=== PATIENT | female | born 1965 | race Caucasian/White ===

== ENCOUNTER 2017-01-02 10:13 | Inpatient (IN) | payer OTHER ==
[2017-01-02 13:05] VITALS: BMI 20.8
--- NOTE | 2017-01-02 16:32 | HP ---
COWS - Scale Resting Pulse: 0= NM 80 or Below Sweatin=Flushed/Facial Moisture Restless Observation: 1= Difficult to Sit Still Pupil Size: 0= Normal to Room Light Bone or Joint Aches: 2= Severe Diffuse Aches Runny Nose/ Eye Tearin= Runny Nose/Eyes GI Upset > 30mins: 2= Nausea/Diarrhea Tremor Observation: 2= Slight Tremor Visible Yawning Observation: 2= >3x During Session Anxiety or Irritability: 2=Irritable/Anxious Goose Flesh Skin: 3=Piloerection COWS Score: 18 Admission ROS S - HPI Chief Complaint: I need to live again, i lost loved one because of drugs and i need to stop. Allergies/Adverse Reactions: Allergies Allergy/AdvReac Type Severity Reaction Status Date / Time No Known Allergies Allergy Verified 01/02/17 14:54 History of Present Illness: pt is a 51yr old female with a history of heroin dependence seeking detox for treatment. Exam Limitations: No Limitations - Ebola screening Have you traveled outside of the country in the last 21 days: No Have you had contact with anyone from an Ebola affected area: No Have you been sick,other than usual withdrawal symptoms: No - Review of Systems Constitutional: Chills, Diaphoresis, Loss of Appetite, Changes in sleep EENT: reports: Tearing, Nose Congestion Respiratory: reports: No Symptoms reported Cardiac: reports: No Symptoms Reported, Syncope GI: reports: Diarrhea, Nausea, Poor Appetite, Poor Fluid Intake, Indigestion : reports: No Symptoms Reported Musculoskeletal: reports: No Symptoms Reported Integumentary: reports: Flushing, Sweating Neuro: reports: Headache, Tingling, Tremors Endocrine: reports: Excessive Sweating, Flushing, Intolerance to Cold, Intolerance to Heat Hematology: reports: No Symptoms Reported Psychiatric: reports: Judgement Intact, Mood/Affect Appropiate, Orientated x3, Agitated, Anxious Other Systems: Reviewed and Negative Patient History - Patient Medical History Hx Anemia: No Hx Asthma: No Hx Chronic Obstructive Pulmonary Disease (COPD): No Hx Cancer: Yes (CERVICAL S/P [facility]-SURGERY) Hx Cardiac Disorders: No Hx Congestive Heart Failure: No Hx Hypertension: No Hx Hypercholesterolemia: No Hx Pacemaker: No HX Cerebrovascular Accident: No Hx Seizures: No Hx Dementia: No Hx Diabetes: No Hx Gastrointestinal Disorders: No Hx Liver Disease: No Hx Genitourinary Disorders: No Hx Sexually Transmitted Disorders: No Hx Renal Disease (ESRD): No Hx Thyroid Disease: No Hx Human Immunodeficiency Virus (HIV): No (negative) Hx Hepatitis C: No (negative) Hx Depression: Yes Hx Suicide Attempt: Yes (denies any S/H ideation ) Hx Bipolar Disorder: No Hx Schizophrenia: No Other Medical History: denies - Patient Surgical History Past Surgical History: Yes Hx Neurologic Surgery: No Hx Cataract Extraction: No Hx Cardiac Surgery: No Hx Lung Surgery: No Hx Breast Surgery: No Hx Breast Biopsy: No Hx Abdominal Surgery: No Hx Appendectomy: No Hx Cholecystectomy: No Hx Genitourinary Surgery: No Hx Section: No Hx Orthopedic Surgery: No Other Surgical History: LAPAROSCOPIC FOR OVARIAN CYST Anesthesia Reaction: No - PPD History Previous Implant?: Yes Implanted On Prior [facility] Admission?: Yes Date: 07/11/16 PPD to be Administered?: No - Reproductive History Patient is a Female of Child Bearing Age (11 -55 yrs old): No Patient : No - Smoking Cessation Smoking history: Current every day smoker Have you smoked in the past 12 months: Yes Aproximately how many cigarettes per day: 20 Hx Chewing Tobacco Use: No Initiated information on smoking cessation: Yes 'Breaking Loose' booklet given: 01/02/17 - Substance & Tx. History Hx Substance Use: Yes Substance Use Type: Cocaine, Heroin, Marijuana Hx Substance Use Treatment: Yes - Substances Abused Heroin Route: Injection Frequency: Daily Amount used: 10 bags Age of first use: 29 Date of Last Use: 01/02/17 Cocaine Route: Smoking Frequency: Daily Amount used: $50 Age of first use: 29 Date of Last Use: 01/01/17 Marijuana/Hashish Route: Smoking Frequency: Daily Amount used: omid bag Age of first use: 10 Date of Last Use: 01/01/17 Family Disease History - Family Disease History Family Disease History: Heart Disease: Father (ALCOHOL), Other: Father, Brother (ALCOHOL & COCAINE), Sister (ALCOHOL & COCAINE) Admission Physical Exam BHS - Vital Signs Vital Signs: Vital Signs - 24 hr 01/02/17 13:02 Temperature 96.4 F L Pulse Rate 64 Respiratory 20 Rate Blood Pressure 118/58 - Physical General Appearance: Yes: Appropriately Dressed, Moderate Distress, Tremorous, Irritable, Sweating, Anxious HEENTM: Yes: Normal Voice, Nasal Congestion Respiratory: Yes: Lungs Clear, Normal Breath Sounds, No Respiratory Distress Neck: Yes: No masses,lesions,Nodules Breast: Yes: Within Normal Limits Cardiology: Yes: Regular Rhythm, Regular Rate, S1, S2 Abdominal: Yes: Normal Bowel Sounds, Non Tender, Soft Genitourinary: Yes: Within Normal Limits Back: Yes: Normal Inspection Musculoskeletal: Yes: full range of Motion, Back pain Extremities: Yes: Normal Capillary Refill, Normal Inspection, Tremors Neurological: Yes: Fully Oriented, Alert, Normal Response Integumentary: Yes: Normal Color, Diaphoresis Lymphatic: Yes: Within Normal Limits - Diagnostic (1) Cocaine dependence, uncomplicated Current Visit: Yes Status: Chronic (2) Opioid dependence with withdrawal Current Visit: Yes Status: Chronic (3) Nicotine dependence Current Visit: Yes Status: Chronic Qualifiers: Nicotine product type: cigarettes Substance use status: uncomplicated Qualified Code(s): F17.210 - Nicotine dependence, cigarettes, uncomplicated Cleared for Admission [facility] - Detox or Rehab [facility] Level of Care: Medically Managed Detox Regimen/Protocol: Methadone [facility] Breath Alcohol Content Breath Alcohol Content: 0 Urine Pregancy Test - Result Urine Test Results: Negative- NO Line Present Urine Drug Screen - Results Drug Screen Negative: No Urine Drug Screen Results: THC-Marijuana, PADMINI-Cocaine, OPI-Opiates, BZO- Benzodiazepines
[2017-01-02] MEDS ORDERED: hydrOXYzine PAMOATE 50 MG CAPSULE (FP) PO PRN (16:39)
[2017-01-02] MEDS ORDERED: P-EPHED 60MG/TRIPROLIDI 2.5MG TABLET PO PRN (16:39)
[2017-01-02] MEDS ORDERED: IBUPROFEN 400 MG TABLET (FP) PO PRN (16:39)
[2017-01-02] MEDS ORDERED: MENTHOL/PHENOL 1 EACH UD MM PRN (16:39)
[2017-01-02] MEDS ORDERED: diphenhydrAMINE HCL 50 MG CAPSULE PO PRN (16:39)
[2017-01-02] MEDS ORDERED: MAGNESIUM HYDROX 2400MG/30ML ORAL SUSPENSION 30 ML CUP PO PRN (16:39)
[2017-01-02] MEDS ORDERED: ACETAMINOPHEN 325 MG TABLET (FP) PO PRN (16:39)
[2017-01-02] MEDS ORDERED: MAGNESIUM CITRATE 300 ML BOTTLE PO PRN (16:39)
[2017-01-02] MEDS ORDERED: LOPERAMIDE HCL 2 MG CAPSULE PO PRN (16:39)
[2017-01-02] MEDS ORDERED: guaiFENesin/D-METHORPHAN HB 10 ML UNIT-DOSE CUPS PO PRN (16:39)
[2017-01-02] MEDS ORDERED: MAG HYDROX/AL HYDROX/SIMETH 30 ML UNIT-DOSE CUP PO PRN (16:39)
[2017-01-02] MEDS ORDERED: METHADONE HCL 10 MG TABLET (FOR DETOX USE ONLY) PO ONE ×2 (17:00→23:00)
[2017-01-02] MEDS: diazePAM 5 MG TABLET PO PRN ×2 (18:18→22:41)
[2017-01-02] MEDS: THIAMINE HCL 100 MG TABLET (FP) PO SCH (22:40)
[2017-01-02 23:54] LABS: URINE APPEARANCE SLCLOUDY; URINE BILIRUBIN NEGATIVE (NEGATIVE); URINE COLOR YELLOW; URINE GLUCOSE (UA) NEGATIVE (NEGATIVE); URINE KETONE NEGATIVE (NEGATIVE); URINE NITRITE POSITIVE (NEGATIVE); URINE PROTEIN NEGATIVE (NEGATIVE); URINE UROBILINOGEN NEGATIVE E.U./dl (0.2-1.0)
[2017-01-03 00:11] LABS: URINE BLOOD 1+ (NEGATIVE); URINE LEUK ESTERASE TRACE (NEGATIVE)
[2017-01-03 00:30] LABS: CALCIUM OXALATE CRYSTALS RARE /hpf (NONE SEEN); URINE BACTERIA RARE /hpf (NONE SEEN); URINE MUCUS RARE; URINE RBC 1 /hpf (0-3); URINE WBC 5 /hpf (3-5)
[2017-01-03] MEDS: diazePAM 5 MG TABLET PO PRN ×4 (05:32→22:35)
[2017-01-03] MEDS ORDERED: NICOTINE 21 MG/24 HOURS TOPICAL PATCH TD SCH (10:00)
[2017-01-03] MEDS ORDERED: PRENATAL VITAMINS W/ FOLIC ACID TABLET (FP) PO SCH (10:00)
[2017-01-03] MEDS ORDERED: METHADONE HCL 10 MG TABLET (FOR DETOX USE ONLY) PO ONE (10:00)
[2017-01-03 10:16] LABS: MCH 29.4 pg (25.7-33.7); MEAN CELL VOLUME 89.2 fl (80-96); MEAN PLT VOLUME 9.8 fl (7.5-11.1); PLATELET COUNT 227 K/MM3 (134-434); RDW 14.1 % (11.6-15.6); WHITE BLOOD COUNT 7.8 K/mm3 (4.0-10.0)
[2017-01-03 10:35] LABS: ALBUMIN 3.9 g/dl (3.4-5.0); ALK PHOS 85 U/L (45-117); ANION GAP 8 (8-16); BILIRUBIN,TOTAL 0.6 mg/dL (0.2-1.0); CALCIUM 9.5 mg/dL (8.5-10.1); CO2 28 mmol/L (21-32); CREATININE 0.9 mg/dL (0.55-1.02); GLUCOSE,RANDOM 162 mg/dL (74-106); SGOT/AST 29 U/L (15-37); SGPT/ALT 24 U/L (12-78); TOT PROT 7.8 g/dl (6.4-8.2)
--- NOTE | 2017-01-03 11:13 | CONSULT ---
[facility] Psychiatric Consult - Data Date of interview: 01/03/17 Admission source: [facility] Identifying data: Readmission to [facility] for this 51 y/o [place] female seeking detox treatment for heroin,cocaine and marijuana dependence.Patient is ,a mother of one,domiciled,unemployed and supported by her reamer hand. Substance Abuse History: - Smoking Cessation. Smoking history: Current every day smoker. Have you smoked in the past 12 months: Yes. Aproximately how many cigarettes per day: 20. Hx Chewing Tobacco Use: No. Initiated information on smoking cessation: Yes. 'Breaking Loose' booklet given: 01/02/17. - Substance & Tx. History. Hx Substance Use: Yes. Substance Use Type: Cocaine, Heroin, Marijuana. Hx Substance Use Treatment: Yes. - Substances Abused. Heroin. Route: Injection. Frequency: Daily. Amount used: 10 bags. Age of first use: 29. Date of Last Use: 01/02/17. Cocaine. Route: Smoking. Frequency: Daily. Amount used: $50. Age of first use: 29. Date of Last Use: 01/01/17. * * Marijuana/Hashish. Route: Smoking. Frequency: Daily. Amount used: omid bag. Age of first use: 10. Date of Last Use: 01/01/17. Confirmed by patient. Medical History: History of conization for cervical cancer and laparoscopic surgery for ovarian cyst. Psychiatric History: Patient admits to a history of one psychiatric hospitalization ([facility]) about 20 years ago for depression/suicide attempt via overdose with drugs.Diagnosed with MDD/Anxiety Disorder.Used to be on various pychotropic medications.Stopped psychiatric OPD care years ago.No medications. Physical/Sexual Abuse/Trauma History: Patient declines to discuss this domain. Additional Comment: Urine Drug Screen Results: THC-Marijuana, PADMINI-Cocaine, OPI- Opiates, BZO-Benzodiazepines.Noted. Mental Status Exam - Mental Status Exam Alert and Oriented to: Time, Place, Person Cognitive Function: Good Patient Appearance: Well Groomed Mood: Hopeful, Euthymic Affect: Appropriate, Normal Range Patient Behavior: Fatigued, Appropriate, Cooperative Speech Pattern: Clear Voice Loudness: Normal Thought Process: Goal Oriented Thought Disorder: Not Present Hallucinations: Denies Suicidal Ideation: Denies Homicidal Ideation: Denies Insight/Judgement: Poor Sleep: Poorly, Difficulty falling asleep (wants ambien) Appetite: Good Muscle strength/Tone: Normal Gait/Station: Normal Psychiatric Findings - Problem List ([place] 1, 2,3) (1) Cocaine dependence, uncomplicated Current Visit: Yes Status: Acute (2) Opioid dependence with withdrawal Current Visit: Yes Status: Acute (3) Nicotine dependence Current Visit: Yes Status: Acute Qualifiers: Nicotine product type: cigarettes Substance use status: uncomplicated Qualified Code(s): F17.210 - Nicotine dependence, cigarettes, uncomplicated (4) Substance induced mood disorder Current Visit: Yes Status: Acute (5) Insomnia Current Visit: Yes Status: Acute - Initial Treatment Plan Initial Treatment Plan: Psychoeducation.Detoxification.Ambien 5 mg po hs.Patient is made aware of potential for parasomnias.She agrees with careplan.Observation.
[2017-01-03] MEDS ORDERED: ZOLPIDEM TARTRATE 5 MG TABLET PO PRN (11:28)
--- NOTE | 2017-01-03 12:21 | EKG ---
Test Reason : Blood Pressure : / mmHG Vent. Rate : 061 BPM Atrial Rate : 061 BPM P-R Int : 140 ms QRS Dur : 082 ms QT Int : 436 ms P-R-T Axes : 053 072 061 degrees QTc Int : 438 ms NORMAL SINUS RHYTHM NORMAL ECG NO PREVIOUS ECGS AVAILABLE Confirmed by MD KRISTAL, BRENNAN ([id number]) on 01/03/2017 12:20:36 PM Referred By: Confirmed By:BRENNAN GIRALDO MD
--- NOTE | 2017-01-03 14:56 | PN ---
BHS COWS - Scale Resting Pulse: 0= [place] 80 or Below Sweatin= Chills/Flushing Restless Observation: 3= Extraneous Movement Pupil Size: 1= Pupils >than Normal Bone or Joint Aches: 2= Severe Diffuse Aches Runny Nose/ Eye Tearin= Runny Nose/Eyes GI Upset > 30mins: 3= Vomiting/Diarrhea Tremor Observation of Outstretched Hands: 2= Slight Tremor Visible Yawning Observation: 1= 1-2x During Session Anxiety or Irritability: 2=Irritable/Anxious Goose Flesh Skin: 0=Smooth Skin COWS Score: 17 S Progress Note (SOAP) Subjective: ALERT,IRRITABLE,ANXIOUS,INTERRUPTED SLEEP,PAIN IN THE BODY AND BACK Objective: 01/03/17 14:54 Vital Signs Temperature 97.9 F 01/03/17 10:00 Pulse Rate 66 01/03/17 10:00 Respiratory Rate 16 01/03/17 10:00 Blood Pressure 142/62 01/03/17 10:00 O2 Sat by Pulse Oximetry (%) 01/03/17 14:54 EKG NSR,NORMAL ECG 01/03/17 14:55 Laboratory Last Values WBC 7.8 K/mm3 (4.0-10.0) 01/03/17 06:00 RBC 4.99 M/mm3 (3.60-5.2) 01/03/17 06:00 Hgb 14.7 GM/dL (10.7-15.3) 01/03/17 06:00 Hct 44.5 % (32.4-45.2) 01/03/17 06:00 MCV 89.2 fl (80-96) 01/03/17 06:00 MCHC 33.0 g/dl (32.0-36.0) 01/03/17 06:00 RDW 14.1 % (11.6-15.6) 01/03/17 06:00 Plt Count 227 K/MM3 (134-434) 01/03/17 06:00 MPV 9.8 fl (7.5-11.1) D 01/03/17 06:00 Sodium 139 mmol/L (136-145) 01/03/17 06:00 Potassium 4.0 mmol/L (3.5-5.1) 01/03/17 06:00 Chloride 103 mmol/L (98-107) 01/03/17 06:00 Carbon Dioxide 28 mmol/L (21-32) 01/03/17 06:00 Anion Gap 8 (8-16) 01/03/17 06:00 BUN 9 mg/dL (7-18) D 01/03/17 06:00 Creatinine 0.9 mg/dL (0.55-1.02) D 01/03/17 06:00 Creat Clearance w eGFR > 60 (>60) 01/03/17 06:00 Random Glucose 162 mg/dL (74-106) H D 01/03/17 06:00 Calcium 9.5 mg/dL (8.5-10.1) 01/03/17 06:00 Total Bilirubin 0.6 mg/dL (0.2-1.0) 01/03/17 06:00 AST 29 U/L (15-37) 01/03/17 06:00 ALT 24 U/L (12-78) 01/03/17 06:00 Alkaline Phosphatase 85 U/L (45-117) 01/03/17 06:00 Total Protein 7.8 g/dl (6.4-8.2) 01/03/17 06:00 Albumin 3.9 g/dl (3.4-5.0) 01/03/17 06:00 Urine Color Yellow 01/02/17 23:40 Urine Appearance Slcloudy 01/02/17 23:40 Urine pH 5.0 (5.0-8.0) 01/02/17 23:40 Ur Specific [place] 1.020 (1.005-1.025) 01/02/17 23:40 Urine Protein Negative (NEGATIVE) 01/02/17 23:40 Urine Glucose (UA) Negative (NEGATIVE) 01/02/17 23:40 Urine Ketones Negative (NEGATIVE) 01/02/17 23:40 Urine Blood 1+ (NEGATIVE) H 01/02/17 23:40 Urine Nitrite Positive (NEGATIVE) 01/02/17 23:40 Urine Bilirubin Negative (NEGATIVE) 01/02/17 23:40 Urine Urobilinogen Negative E.U./dl (0.2-1.0) 01/02/17 23:40 Ur Leukocyte Esterase Trace (NEGATIVE) H D 01/02/17 23:40 Urine RBC 1 /hpf (0-3) 01/02/17 23:40 Urine WBC 5 /hpf (3-5) 01/02/17 23:40 Ur Epithelial Cells Moderate /hpf (FEW) 01/02/17 23:40 Calcium Oxalate Crystal Rare /hpf (NONE SEEN) 01/02/17 23:40 Urine Bacteria Rare /hpf (NONE SEEN) 01/02/17 23:40 Urine Mucus Rare 01/02/17 23:40 RPR Titer Nonreactive (NONREACTIVE) 01/03/17 06:00 Assessment: 01/03/17 14:55 WITHDRAWAL SYMPTOM Plan: CONTINUE DETOX,BGM MONITORING
[2017-01-03] MEDS: THIAMINE HCL 100 MG TABLET (FP) PO SCH (22:35)
[2017-01-04] MEDS: diazePAM 5 MG TABLET PO PRN ×2 (02:47→07:22)
--- NOTE | 2017-01-04 09:49 | PN ---
BHS COWS - Scale Resting Pulse: 0= [place] 80 or Below Sweatin= Chills/Flushing Restless Observation: 3= Extraneous Movement Pupil Size: 1= Pupils >than Normal Bone or Joint Aches: 2= Severe Diffuse Aches Runny Nose/ Eye Tearin= Runny Nose/Eyes GI Upset > 30mins: 2= Nausea/Diarrhea Tremor Observation of Outstretched Hands: 2= Slight Tremor Visible Yawning Observation: 1= 1-2x During Session Anxiety or Irritability: 2=Irritable/Anxious Goose Flesh Skin: 0=Smooth Skin COWS Score: 16 BHS Progress Note (SOAP) Subjective: ALERT,IRRITABLE,ANXIOUS,INTERRUPTED SLEEP,TREMOR,PAIN IN THE BODY AND BACK Objective: 01/04/17 09:48 Vital Signs Temperature 97.9 F 01/04/17 06:00 Pulse Rate 62 01/04/17 06:00 Respiratory Rate 18 01/04/17 06:00 Blood Pressure 139/87 01/04/17 06:00 O2 Sat by Pulse Oximetry (%) 01/04/17 09:49 BGM 107 Assessment: 01/04/17 09:49 WITHDRAWAL SYMPTOM Plan: CONTINUE DETOX
--- NOTE | 2017-01-04 09:53 | PN ---
S Progress Note Note: ADDENDUM PATIENT DID NOT WANT TO COMPLETE TREATMENT,SIGNED RELEASE AMA,SEEN BY COUNSELOR, FOLLOW UP WITH AFTER CARE PROGRAM ARRANGEMENT
[2017-01-04 09:55] VITALS: BP 162/78; PULSE 78; TEMP 98.1
--- NOTE | 2017-01-04 09:55 | DS ---
[facility] Detox Discharge Summary Admission Date: 01/02/17 Discharge Date: 01/04/17 - History Present History: Cocaine Dependence, Opioid Dependence Additional Comments: PATIENT DID NOT WANT TO COMPLETE TREATMENT,SIGNED RELEASE AMA,SEEN BY COUNSELOR, FOLLOW UP WITH AFTER CARE PROGRAM ARRANGEMENT Pertinent Past History: NICOTINE DEPENDENCE - Physical Exam Results Vital Signs: Vital Signs Temperature 97.9 F 01/04/17 06:00 Pulse Rate 62 01/04/17 06:00 Respiratory Rate 18 01/04/17 06:00 Blood Pressure 139/87 01/04/17 06:00 O2 Sat by Pulse Oximetry (%) Pertinent Admission Physical Exam Findings: WITHDRAWAL SYMPTOM - Medication Discharge Medications: Ambulatory Orders NK [No Known Home Medication] 07/09/16 - AMA Did Patient Leave Against Medical Advice: Yes
[2017-01-04] MEDS ORDERED: METHADONE HCL 5 MG TABLET (FOR DETOX USE ONLY) PO ONE (10:00)
[2017-01-05] MEDS ORDERED: METHADONE HCL 5 MG TABLET (FOR DETOX USE ONLY) PO ONE (10:00)
[2017-01-06] MEDS ORDERED: METHADONE HCL 10 MG TABLET (FOR DETOX USE ONLY) PO ONE (10:00)
[2017-01-07] MEDS ORDERED: METHADONE HCL 5 MG TABLET (FOR DETOX USE ONLY) PO ONE (06:00)
== END 2017-01-04 10:05 | disposition left against medical advice (07) | DRG 770 ==
LOC: YASAS 10:13 → Y6N 16:32
PROVIDERS: ADMIT Internal Medicine; ATTEND Internal Medicine
PROC: HZ2ZZZZ Detoxification Services for Substance Abuse Treatment (ICD-10-PCS; principal; 2017-01-02)
DX: F11.23 Opioid dependence with withdrawal (principal); F14.20 Cocaine dependence, uncomplicated; F12.20 Cannabis dependence, uncomplicated; F17.210 Nicotine dependence, cigarettes, uncomplicated; F19.24 Other psychoactive substance dependence with psychoactive substance-induced mood disorder; G47.00 Insomnia, unspecified; Z85.41 Personal history of malignant neoplasm of cervix uteri
CPT/HCPCS: 36415; 80053; 81003; 81015; 85027; 86593; 93005; 93010

== ENCOUNTER 2020-08-09 09:15 | Inpatient (IN) | payer OTHER ==
[2020-08-09 09:59] VITALS: BMI 20.8
[2020-08-09] MEDS ORDERED: ACETAMINOPHEN 325 MG TABLET (FP) PO PRN ×2 (10:08)
[2020-08-09] MEDS ORDERED: cloNIDine HCL 0.1 MG TABLET PO PRN (10:08)
[2020-08-09] MEDS ORDERED: MAGNESIUM HYDROX 2400MG/30ML ORAL SUSPENSION 30 ML CUP PO PRN (10:08)
[2020-08-09] MEDS ORDERED: MENTHOL/PHENOL 1 EACH UD MM PRN (10:08)
[2020-08-09] MEDS ORDERED: NICOTINE POLACRILEX 2 MG GUM BUC PRN (10:08)
[2020-08-09] MEDS ORDERED: METHOCARBAMOL 500 MG TABLET PO PRN (10:08)
[2020-08-09] MEDS ORDERED: methaDONE HCL 10 MG TABLET (FOR DETOX USE ONLY) PO ONE (10:08)
[2020-08-09] MEDS ORDERED: MAG HYDROX/AL HYDROX/SIMETH 30 ML UNIT-DOSE CUP PO PRN (10:08)
[2020-08-09] MEDS ORDERED: IBUPROFEN 400 MG TABLET (FP) PO PRN (10:08)
[2020-08-09] MEDS ORDERED: MAGNESIUM CITRATE 300 ML BOTTLE PO PRN (10:08)
[2020-08-09] MEDS ORDERED: BISMUTH SUBSALICYLATE 262 MG/15 ML BTL PO PRN (10:08)
[2020-08-09] MEDS ORDERED: ONDANSETRON *ODT* 4 MG TABLET SL PRN (10:08)
[2020-08-09] MEDS ORDERED: NICOTINE 21 MG/24 HOURS TOPICAL PATCH TD SCH (10:15)
[2020-08-09 13:24] VITALS: BP 123/95; PULSE 83; TEMP 97.1
[2020-08-09] MEDS ORDERED: hydrOXYzine PAMOATE 25 MG CAPSULE (FP) PO SCH (14:00)
[2020-08-09 14:58] LABS: HEMATOCRIT 46.9 % (32.4-45.2); HEMOGLOBIN 15.6 GM/dL (10.7-15.3); MCH 29.5 pg (25.7-33.7); MCHC 33.3 g/dl (32.0-36.0); MEAN CELL VOLUME 88.5 fl (80-96); MEAN PLT VOLUME 9.4 fl (7.5-11.1); PLATELET COUNT 279 K/MM3 (134-434); RDW 14.8 % (11.6-15.6); WHITE BLOOD COUNT 11.3 K/mm3 (4.0-10.0)
[2020-08-09 15:05] LABS: ALBUMIN 4.6 g/dl (3.4-5.0); BLOOD UREA NITROGEN 10.1 mg/dL (7-18); CALCIUM 9.7 mg/dL (8.5-10.1)
[2020-08-09 15:08] LABS: CREATININE 0.8 mg/dL (0.55-1.3)
[2020-08-09 15:10] LABS: TOT PROT 9.1 g/dl (6.4-8.2)
[2020-08-09 15:12] LABS: BILIRUBIN,TOTAL 1.6 mg/dL (0.2-1)
[2020-08-09 16:00] LABS: HIV INTERPRETATION NEGATIVE (NEGATIVE)
[2020-08-09] MEDS ORDERED: MELATONIN 5 MG TABLETS PO SCH (22:00)
[2020-08-09] MEDS ORDERED: THIAMINE HCL 100 MG TABLET (FP) PO SCH (22:00)
[2020-08-10] MEDS ORDERED: PRENATAL VITAMINS W/ FOLIC ACID TABLET (FP) PO SCH (10:00)
[2020-08-11] MEDS ORDERED: methaDONE HCL 10 MG TABLET (FOR DETOX USE ONLY) PO ONE (10:00)
[2020-08-13] MEDS ORDERED: methaDONE HCL 10 MG TABLET (FOR DETOX USE ONLY) PO ONE (10:00)
== END 2020-08-09 15:00 | disposition left against medical advice (07) | DRG 770 ==
LOC: YASAS 09:15 → Y6N 10:16
PROVIDERS: ADMIT Allergy & Immunology; ATTEND Allergy & Immunology
PROC: HZ2ZZZZ Detoxification Services for Substance Abuse Treatment (ICD-10-PCS; principal; 2020-08-09)
DX: F11.23 Opioid dependence with withdrawal (principal); F14.20 Cocaine dependence, uncomplicated; F17.210 Nicotine dependence, cigarettes, uncomplicated; F19.24 Other psychoactive substance dependence with psychoactive substance-induced mood disorder; G47.00 Insomnia, unspecified
CPT/HCPCS: 36415; 80053; 81025; 85027; 86780; 87389; 93005; 93010; C9803; U0003